=== PATIENT | female | born 1960 | race Caucasian/White ===

== ENCOUNTER 2019-11-08 14:12 | Inpatient (IN) | payer MEDICAID ==
[~2019-11-08] VITALS: Ht 165.1 cm; Wt 100.7 kg
[2019-11-08 14:24] VITALS: BP_SYST 107
--- NOTE | 2019-11-08 14:40 | NUR ---
Patient to ER bed 7 to gown for evaluation. Side rails up.
--- NOTE | 2019-11-08 14:45 | NUR ---
pt arrives from [facility] d/t low Hgb 6.5, reported by the HD center on 11/06. Pt is awake and non verbal. Pt is trch and vent dependent. G-tube is in place. Pt has HD acssess on the left chest. Pt has generalized edema and multiple wounds to BUE, BLE. charter representative placed. Will continue to monitor
--- NOTE | 2019-11-08 14:48 | NUR ---
EKG done and given to
--- NOTE | 2019-11-08 15:00 | NUR ---
urine sample collected via straight cath, sent to the lab
--- NOTE | 2019-11-08 15:20 | NUR ---
# 22 gauge angiocath placed to right chest. Use of asceptic technique. Opsite placed over site. Blood return noted. Blood for lab drawn from site. Flushed with 10 cc of normal saline. No evidence of infiltration noted. Patient tolerated well.
[2019-11-08 15:33] LABS: BILIRUBIN,URINE NEGATIVE (NEGATIVE); BLOOD, URINE 3+ (NEGATIVE); CLARITY/URINE TURBID (CLEAR); COLOR,URINE YELLOW (YELLOW); GLUCOSE,URINE NEGATIVE (NEGATIVE); KETONES,URINE NEGATIVE (NEGATIVE); LEUKOCYTE ESTERASE ,URINE 3+ (NEGATIVE); NITRITE, URINE NEGATIVE (NEGATIVE); PROTEIN URINE 3+ (NEGATIVE); UROBILINOGEN,URINE 0.2 (0.2-1.0)
--- NOTE | 2019-11-08 15:43 | NUR ---
pt getting a CXR at the bedside.
[2019-11-08 16:14] LABS: MEAN CORPUSCULAR HEMOGLOBIN 32 pg (27-31); MEAN CORPUSCULAR HGB CONC 32 % (32-36); MEAN CORPUSCULAR VOLUME 102 fL (79.0-98.0); PLATELET COUNT (AUTO) 112 K/uL (130-430); RED BLOOD CELL COUNT(AUTO) 2.02 MIL/uL (4.2-6.2); RED CELL DISTRIBUTION WIDTH 21.5 % (9.0-15.0); WHITE BLOOD COUNT (AUTO) 7.9 K/uL (4.8-10.8)
--- NOTE | 2019-11-08 16:15 | NUR ---
current vent settings are as follows: AC mode, TV o450, Peep 5, FiO2 35%
[2019-11-08 16:25] LABS: CALCIUM 10.1 mg/dL (8.4-11.0); CREATININE 3.65 mg/dL (0.55-1.30); POTASSIUM 3.5 mmol/L (3.5-5.1); PROTHROMBIN TIME 10.2 SECS (9.5-12.5)
[2019-11-08 16:34] LABS: HEMATOCRIT 20.6 % (36-48); HEMOGLOBIN 6.5 g/dL (12.0-16.0)
[2019-11-08 16:37] LABS: ALBUMIN 1.8 g/dL (3.4-4.8); FREE T4 (FREE THYROXINE) 0.8 ng/dl (0.8-1.5); TOTAL BILIRUBIN 0.3 mg/dL (0.0-1.0)
[2019-11-08] MEDS ORDERED: MIDO10TA GT (17:16)
[2019-11-08] MEDS ORDERED: ACET-2165 GT ×2 (17:16)
[2019-11-08] MEDS ORDERED: LANS30CA53 GT (17:16)
[2019-11-08] MEDS ORDERED: LOPE2CAP GT (17:16)
[2019-11-08] MEDS ORDERED: LEVE1000 GT (17:16)
[2019-11-08] MEDS ORDERED: LACO200T2 GT (17:16)
[2019-11-08] MEDS ORDERED: DEPAK250 GT (17:16)
[2019-11-08] MEDS ORDERED: CHLO1LIQ2 MC (17:16)
--- NOTE | 2019-11-08 17:27 | NUR ---
Medication reconciliation completed with information provided by pt's medical record. Any prior medication reconciliation on file was reviewed and corrected.
--- NOTE | 2019-11-08 17:27 | NUR ---
telephone consent for blood transfusion obtained from the pt's son, Josiah Christopher.
[2019-11-08] MEDS ORDERED: cefTRIAXone 1 GM IVPB PREMIX 50 ML IV ONE (17:30)
[2019-11-08] MEDS ORDERED: FUROSEMIDE 40 MG/4 ML VIAL IVP ONE (17:30)
[2019-11-08 17:45] LABS: BACTERIA,URINE MANY /HPF (None Seen); MUCUS,URINE None Seen /LPF (None Seen); WBC,URINE >100 /HPF (0-3)
[2019-11-08] MEDS ORDERED: PANTOPRAZOLE SODIUM 40 MG/VIAL (PROTONIX) IVP ONE (17:45)
--- NOTE | 2019-11-08 18:13 | NUR ---
MEDICATED THE PT W/ ROCEPHIN 1GM, LASIX 40MG, AND PROTONIX 80MG PER MD ORDER.
--- NOTE | 2019-11-08 18:14 | NUR ---
PT WILL BE ADMITTED UNDER THE CARE OF DR. RASCON. MRSA COLLECTED
--- NOTE | 2019-11-08 18:17 | NUR ---
Patient will be admitted to care of DR RASCON. Admitted to TELE unit. Will go to room 100-A. Belongings list completed. Complete and up to date summary report printed. SBAR report to be given at bedside with opportunity for questions.BEDSIDE RPEPORT TO BE GIVEN. IV IS ON THE RIGHT CHEST 22G, PATENT AND INFUSING WELL
[2019-11-08] MEDS ORDERED: PANTOPRAZOLE SODIUM 40 MG/VIAL (PROTONIX) ONE (18:20)
[2019-11-08 18:39] VITALS: BP_SYST 102
[2019-11-08 18:43] LABS: TOTAL IRON BIND. CAPACITY 158 ug/dL (250-450)
--- NOTE | 2019-11-08 18:53 | NUR ---
Received patient and report from ER nurse. Patient arrived on unit at tele status at 1839 via gurney with assistance from respiratory therapist. Patient awake. Transferred to bed, placed tele monitor on. 0/10 FLACC pain scale. Patient Trach to vent with AC 12, total volume 450, Fi02 40%, PEEP of 5. Vital signs collected, Blood pressure 102/45, 02 Sat 100, Respirations 20, Temp 97.4, Pulse 80. Call light with in reach.
[2019-11-08 19:00] VITALS: BP_SYST 93
[2019-11-08 19:09] LABS: BAND % (MANUAL) 12 % (0-6); LYMPHOCYTES % (MANUAL) 9 % (20-46)
--- NOTE | 2019-11-08 19:09 | NUR ---
Endorsed patient and gave report to oncoming shift nurse. Patient in no acute distress.
[2019-11-08 19:10] LABS: BASOPHILS % (MANUAL) 0 % (0-2); EOSINOPHILS % (MANUAL) 3 % (0-7); MONOCYTES % (MANUAL) 7 % (0-11)
--- NOTE | 2019-11-08 19:10 | NUR ---
OPENING NOTES Receive report from morning shift nurse. Patient AOX0. On mechanical ventilator, settings done by RT. No signs of respiratory distress and discomfort noted. Breathing even and unlabored. Bed locked and in lowest position. Assessment done per protocol. Safety precautions in place. Bed locked and in lowest position. Call light with in reach. Safety precautions in place. Will continue to monitor.
[2019-11-08] MEDS ORDERED: IPRATROPIUM BROM 0.5 MG/2.5 ML VIAL.NEB (ATROVENT) INH PRN (20:45)
[2019-11-08] MEDS ORDERED: ALBUTEROL SULFATE 0.083% 2.5 MG/3 ML VIAL.NEB INH PRN (20:45)
--- NOTE | 2019-11-08 21:15 | NUR ---
CONSULTATION PAGED/CALLED Reason for Consultation: VENT DEPENDENT Person Who was Notified: Consulting Physician: KEO Gwot Ia/Ilo Intelligence Support Specialty: Ordering Physician: TARAH
--- NOTE | 2019-11-08 21:17 | NUR ---
CONSULTATION PAGED/CALLED Reason for Consultation: HD Person Who was Notified: Consulting Physician: KATLIN RUTLEDGE PAPERHANGER PIPE Plant Health Manager Specialty: Ordering Physician: TARAH
[2019-11-08 21:19] VITALS: BP_SYST 102
[2019-11-08] MEDS ORDERED: DIPHENHYDRAMINE INJ 50 MG/ML VIAL IVP PRN (21:30)
[2019-11-08] MEDS ORDERED: ACETAMINOPHEN 650 MG/20.3 ML UDC GT PRN ×2 (21:30)
[2019-11-08] MEDS ORDERED: LOPERAMIDE HCL 2 MG/10 ML UDC GT SCH (21:30)
--- NOTE | 2019-11-08 23:44 | NUR ---
BLOOD TRANSFUSION Blood transfusion done at this time. Blood products verified by two RN. CLAIRE Bellamy and CLAIRE Floyd. No signs of respiratory distress and discomfort noted. Vital signs taken and recorded. Safety precautions in place. Will continue to monitor
[2019-11-08] MEDS: levETIRAcetam 500 MG TABLET GT SCH (23:49)
[2019-11-08] MEDS: MIDODRINE HCL 5 MG TABLET (PROAMATINE) GT SCH (23:49)
[2019-11-08] MEDS: LACOSAMIDE 100 MG TABLET GT SCH (23:49)
[2019-11-08] MEDS: VALPROIC ACID 250 MG CAPSULE (DEPAKENE) GT SCH (23:50)
[2019-11-09] VITALS: BP_SYST 98
--- NOTE | 2019-11-09 01:45 | NUR ---
BLOOD TRANSFUSION FINISHED Blood transfusion finished at this time. Patient tolerated blood transfusion well. No allergic reaction noted. No signs of respiratory distress and discomfort noted. Breathing even and unlabored. Safety precautions in place. Will continue to monitor patient
[2019-11-09] MEDS: IPRATROPIUM BROM 0.5 MG/2.5 ML VIAL.NEB (ATROVENT) INH SCH ×4 (01:54→19:25)
[2019-11-09] MEDS: ALBUTEROL SULFATE 0.083% 2.5 MG/3 ML VIAL.NEB INH SCH ×4 (01:55→19:25)
--- NOTE | 2019-11-09 02:04 | NUR ---
BLOOD TRANSFUSION 2nd unit PRBC Blood transfusion started at this time. Blood products verified by two RN. CLAIRE Smith and CLAIRE Floyd. No signs of respiratory distress and discomfort noted. Vital signs taken and recorded. Safety precautions in place. Will continue to monitor
--- NOTE | 2019-11-09 04:10 | NUR ---
2nd unit of PRBC BLOOD TRANSFUSION FINISHED Blood transfusion finished at this time. Patient tolerated blood transfusion well. Vital signs taken and recorded. No allergic reaction noted. No signs of respiratory distress and discomfort noted. Breathing even and unlabored. Safety precautions in place. Will continue to monitor patient
[2019-11-09] MEDS: MIDODRINE HCL 5 MG TABLET (PROAMATINE) GT SCH ×3 (06:46→22:10)
[2019-11-09] MEDS: VALPROIC ACID 250 MG CAPSULE (DEPAKENE) GT SCH ×3 (06:46→22:11)
--- NOTE | 2019-11-09 07:00 | NUR ---
CLOSING NOTES Patient awake. No signs of respiratory distress and discomfort noted. On mechanical ventilator, setting done by RT maintained. IV site, patency noted. G-tube, patency noted, no residual noted. Repositioned q2h. Bed locked and in lowest position. Seizure pads in place. Safety precautions in place. Call light within reach. All needs met throughout the shift. Will continue to monitor patient
[2019-11-09 07:45] LABS: BASOPHILS % (AUTO) 0.4 % (0.0-2.0); EOSINOPHILS # (AUTO) 0.3 K/uL (0.0-0.4); EOSINOPHILS % (AUTO) 2.5 % (0.0-4.0); HEMATOCRIT 26.3 % (36-48); HEMOGLOBIN 8.7 g/dL (12.0-16.0); LYMPHOCYTES # (AUTO) 0.9 K/uL (1.0-5.5); LYMPHOCYTES % (AUTO) 7.9 % (20.5-51.5); MEAN CORPUSCULAR HEMOGLOBIN 32 pg (27-31); MEAN CORPUSCULAR HGB CONC 33 % (32-36); MEAN CORPUSCULAR VOLUME 97 fL (79.0-98.0); MONOCYTES # (AUTO) 0.9 K/uL (0.0-1.0); MONOCYTES % (AUTO) 8.1 % (1.7-9.3); NEUTROPHILS # (AUTO) 8.8 K/uL (1.8-7.7); NEUTROPHILS % (AUTO) 81.1 % (40.0-70.0); PLATELET COUNT (AUTO) 114 K/uL (130-430); RED BLOOD CELL COUNT(AUTO) 2.72 MIL/uL (4.2-6.2); RED CELL DISTRIBUTION WIDTH 20.9 % (9.0-15.0); WHITE BLOOD COUNT (AUTO) 10.9 K/uL (4.8-10.8)
[2019-11-09 08:00] VITALS: BP_SYST 95
[2019-11-09 08:12] LABS: ALBUMIN 1.9 g/dL (3.4-4.8); CALCIUM 10.3 mg/dL (8.4-11.0); CREATININE 3.98 mg/dL (0.55-1.30); POTASSIUM 3.6 mmol/L (3.5-5.1); TOTAL BILIRUBIN 0.5 mg/dL (0.0-1.0)
[2019-11-09] MEDS: levETIRAcetam 500 MG TABLET GT SCH ×2 (10:07→22:10)
[2019-11-09] MEDS: LANSOPRAZOLE 30 MG CAPSULE.DR GT SCH (10:07)
[2019-11-09] MEDS: LACOSAMIDE 100 MG TABLET GT SCH ×2 (10:07→22:11)
--- NOTE | 2019-11-09 10:30 | NUR ---
rounds due meds given as ordered thorught the gt and tra well. resting comfortably.
--- NOTE | 2019-11-09 11:11 | NUR ---
CONSULTATION PAGED/CALLED Reason for Consultation: [] ANEMIA Person Who was Notified: [] RAGINI Consulting Physician: [] DR Padmini MALDONADO Band Saw Operator Cake Cutting Specialty: [] ONCO/RODNEY Ordering Physician: [] DR CHIVO KILGORE
[2019-11-09] MEDS ORDERED: LOPERAMIDE HCL 2 MG CAPSULE GT PRN (11:23)
[2019-11-09] MEDS ORDERED: ALBUMIN HUMAN 25% 200 ML IV ONE (11:30)
[2019-11-09] MEDS ORDERED: HEPARIN SODIUM,PORCINE 5000 UNITS/ML VIAL IVP ONE (12:00)
--- NOTE | 2019-11-09 12:00 | NUR ---
rounds dialysis in progress. no sob noted.
[2019-11-09 12:48] VITALS: BP_SYST 99
[2019-11-09 13:20] VITALS: BP_SYST 102
[2019-11-09] MEDS ORDERED: GENTAMICIN 100 mg/50 mL NS 50 ML IV ONE (16:00)
--- NOTE | 2019-11-09 16:00 | NUR ---
rounds perma cath site blue port was bleeding and marlow dialysis nurse was notified. dressing changed was done and will be observed for further bleeding.
[2019-11-09 16:39] VITALS: BP_SYST 94
[2019-11-09 16:52] LABS: RETICULOCYTE COUNT 1.1 % (0.5-1.5)
--- NOTE | 2019-11-09 17:00 | NUR ---
rounds perma cath blue port was clapmed with a white locked and bleeding stop. dressing was changed and no further bleeding noted. ele dialysis nurse came to see patient..
[2019-11-09 18:37] LABS: C-REACTIVE PROTEIN QUANT 13.7 mg/dL (0-0.5)
--- NOTE | 2019-11-09 19:00 | NUR ---
closing notes seen by dr encarnacion at bedside and with orders. resting comfortably at this time. bed to the lowest position and side rails up and locked. turned repositioned for comfort.
--- NOTE | 2019-11-09 19:10 | NUR ---
OPENING NOTES/ MD ROUNDS Patient AOX0, awake and cooperative. On mechanical ventilator, settings done by RT. No signs of respiratory distress and discomfort noted. Breathing even and unlabored. On G-Tube feeding, infusing well. IV site patency noted. Call light with in reach. Bed locked and in lowest position. Dr. Serrano on the bedside, gave new orders. Safety precautions in place. Bed locked and in lowest position. Call light with in reach. Safety precautions in place. Will continue to monitor.
[2019-11-09 20:18] VITALS: BP_SYST 116
[2019-11-09] MEDS: cefTRIAXone 1 GM in D5W 50 ML IV SCH (21:43)
--- NOTE | 2019-11-09 22:10 | NUR ---
MED PASS DUE MEDICATION GIVEN VIA G TUBE, 0 ML RESIDUAL IS NOTED. PATIENT TOLERATED WELL. NO SIGNS OF RESPIRATORY DISTRESS AND DISCOMFORT NOTED. BREATHING EVEN AND UNLABORED. SAFETY PRECAUTIONS IN PLACE. WILL CONTINUE TO MONITOR PATIENT.
[2019-11-09] MEDS: EPOETIN ALFA 10,000 UNITS/ML VIAL SUBCUT SCH (22:28)
--- NOTE | 2019-11-10 00:01 | NUR ---
RN ROUNDS Patient asleep at this time. no signs of respiratory distress and discomfort noted. breathing even and unlabored. on mechanical ventilator settings maintained. G-tube feeding infusing well. Safety precautions in place. Will continue to monitor.
[2019-11-10 00:54] VITALS: BP_SYST 100
[2019-11-10] MEDS: ALBUTEROL SULFATE 0.083% 2.5 MG/3 ML VIAL.NEB INH SCH ×4 (01:17→19:18)
[2019-11-10] MEDS: IPRATROPIUM BROM 0.5 MG/2.5 ML VIAL.NEB (ATROVENT) INH SCH ×4 (01:17→19:19)
--- NOTE | 2019-11-10 04:30 | NUR ---
RN ROUNDS Patient asleep at this time. No signs of respiratory distress and discomfort noted. breathing even and unlabored. On mechanical ventilator settings maintained. G-tube feeding infusing well. Safety precautions in place. Will continue to monitor.
[2019-11-10] MEDS: MIDODRINE HCL 5 MG TABLET (PROAMATINE) GT SCH ×3 (05:25→21:57)
[2019-11-10] MEDS: VALPROIC ACID 250 MG CAPSULE (DEPAKENE) GT SCH ×3 (05:25→21:35)
--- NOTE | 2019-11-10 06:57 | NUR ---
Nutrition Update Channing Scale 11 noted. Pt admitted for Anemia Diet: Nepro at 30ml/hr, FWF 50ml/hr via GT BMI: 36.3 kg/m2 RD to follow per nutrition care standards.
--- NOTE | 2019-11-10 07:00 | NUR ---
CLOSING NOTES Patient awake. No signs of respiratory distress and discomfort noted. On mechanical ventilator, setting done by RT maintained. IV site, patency noted. G-tube, patency noted, no residual noted. Repositioned q2h. Bed locked and in lowest position. Seizure pads in place. Safety precautions in place. Call light within reach. All needs met throughout the shift. Endorse to CLAIRE Lopez for continuity of care.
--- NOTE | 2019-11-10 07:30 | NUR ---
Am rounds: Received report from night nurse Mariel.Patient opens eyes,non verbal.On trach vent,fio2=35%,good saturation. Tube feeds on going.Padded side rails on,for seizure precaution. Right big toe with dressing on and left foot dressing,clean and dry. Bed locked at lowest position. No acute distress.
[2019-11-10 08:10] LABS: BASOPHILS % (AUTO) 0.6 % (0.0-2.0); EOSINOPHILS # (AUTO) 0.2 K/uL (0.0-0.4); EOSINOPHILS % (AUTO) 2.4 % (0.0-4.0); HEMOGLOBIN 8.6 g/dL (12.0-16.0); LYMPHOCYTES % (AUTO) 12.5 % (20.5-51.5); MEAN CORPUSCULAR HEMOGLOBIN 32 pg (27-31); MEAN CORPUSCULAR HGB CONC 33 % (32-36); MEAN CORPUSCULAR VOLUME 97 fL (79.0-98.0); MONOCYTES # (AUTO) 0.8 K/uL (0.0-1.0); NEUTROPHILS # (AUTO) 5.8 K/uL (1.8-7.7); NEUTROPHILS % (AUTO) 74.5 % (40.0-70.0); PLATELET COUNT (AUTO) 116 K/uL (130-430); RED BLOOD CELL COUNT(AUTO) 2.69 MIL/uL (4.2-6.2); WHITE BLOOD COUNT (AUTO) 7.8 K/uL (4.8-10.8)
[2019-11-10 08:30] LABS: CALCIUM 9.9 mg/dL (8.4-11.0); CREATININE 3.01 mg/dL (0.55-1.30); POTASSIUM 3.3 mmol/L (3.5-5.1)
[2019-11-10] MEDS: LANSOPRAZOLE 30 MG CAPSULE.DR GT SCH (10:00)
[2019-11-10] MEDS: levETIRAcetam 500 MG TABLET GT SCH ×2 (10:00→21:35)
[2019-11-10] MEDS: LACOSAMIDE 100 MG TABLET GT SCH ×2 (10:01→21:35)
--- NOTE | 2019-11-10 10:30 | NUR ---
Rn Rounds: No acute distress. With same vent setting on,tolerated well. Good saturation.Tube feeds running well.
--- NOTE | 2019-11-10 12:01 | NUR ---
Dietitian Recommendations *Recommend: Nepro at 40ml/hr, Giovanni BID via GT Provides: 1888 kcal, 83 gm protein and 698ml free water daily. Meets: 94% of upper end of estimated calorie needs and 95% of upper end of estimated protein needs. *Free Water flush per MD. Please see Nutritional Assessment for details. CARLOS, RD
[2019-11-10 12:27] VITALS: BP_SYST 127
[2019-11-10] MEDS ORDERED: FLU VACC QS2019-20 36MOS UP/PF 60 MCG/0.5 ML SYRINGE I.M. PRN (13:15)
--- NOTE | 2019-11-10 14:00 | NUR ---
Rn rounds: Resting. With same vent settings,good saturation. Condition guarded.
[2019-11-10] MEDS: cefTRIAXone 1 GM in D5W 50 ML IV SCH (15:44)
--- NOTE | 2019-11-10 16:30 | NUR ---
Rn rounds: Patient resting. With same vent setting. Tolerated well. Tube feeds on going. Stable.
[2019-11-10 16:51] VITALS: BP_SYST 143
--- NOTE | 2019-11-10 18:30 | NUR ---
End of Shift: Patient maintained on same vent settings,o2 sat=98-100%. No acute distress. Bed locked at lowest position. Bed alarm on.Tube feedings running well. No residuals prior to giving meds. Safety measures rendered.For Hd in am,together for 1 unit prbc transfusion as ordered.Continue to monitor.
--- NOTE | 2019-11-10 19:10 | NUR ---
OPENING NOTES Patient AOX0, awake and cooperative. On mechanical ventilator, settings done by RT. No signs of respiratory distress and discomfort noted. Breathing even and unlabored. On G-Tube feeding, infusing well. IV site patency noted. Call light with in reach. Bed locked and in lowest position. Safety precautions in place. Bed locked and in lowest position. On seizure pads in place. Safety precautions in place. Will continue to monitor.
[2019-11-10 20:00] VITALS: BP_SYST 142
--- NOTE | 2019-11-10 21:40 | NUR ---
PAGED PAGED JENNIFER DAVILA AT [phone] SPOKE WITH LACY.
--- NOTE | 2019-11-10 21:54 | NUR ---
SPOKE WITH DR. TARAH WU MADE AWARE OF PATIENTS VITAL SIGNS; BLOOD PRESSURE OF 142/52 HR 74. VERBALIZED TO HOLD DUE MEDICATION MIDODRINE AT THIS TIME. SAFETY PRECAUTIONS IN PLACE. WILL CONTINUE TO MONITOR PATIENT.
--- NOTE | 2019-11-10 23:40 | NUR ---
RN ROUNDS Patient awake and watching TV at this time. No signs of respiratory distress and discomfort noted. Breathing even and unlabored. On mechanical ventilator settings maintained. G-tube feeding infusing well. Safety precautions in place. Will continue to monitor.
[2019-11-11] VITALS (7 sets, daily range): BP systolic 103–139
[2019-11-11] MEDS: IPRATROPIUM BROM 0.5 MG/2.5 ML VIAL.NEB (ATROVENT) INH SCH ×4 (01:49→19:16)
[2019-11-11] MEDS: ALBUTEROL SULFATE 0.083% 2.5 MG/3 ML VIAL.NEB INH SCH ×4 (01:49→19:15)
--- NOTE | 2019-11-11 02:38 | NUR ---
RN ROUNDS Patient asleep at this time. No signs of respiratory distress and discomfort noted. Breathing even and unlabored. On mechanical ventilator settings maintained. G-tube feeding infusing well. Safety precautions in place. Will continue to monitor.
[2019-11-11] MEDS: MIDODRINE HCL 5 MG TABLET (PROAMATINE) GT SCH ×3 (05:57→21:29)
[2019-11-11] MEDS: VALPROIC ACID 250 MG CAPSULE (DEPAKENE) GT SCH ×3 (05:57→21:29)
--- NOTE | 2019-11-11 06:56 | NUR ---
CLOSING NOTES Patient awake. No signs of respiratory distress and discomfort noted. On mechanical ventilator, setting done by RT maintained. IV site, patency noted. G-tube, patency noted, no residual noted. Repositioned q2h. Suctioned done as necessary. Bed locked and in lowest position. Seizure pads in place. Dialysis ordered today. Safety precautions in place. Call light within reach. All needs met throughout the shift. Will continuity to monitor until endorse to oncoming shift nurse for continuity of care.
--- NOTE | 2019-11-11 07:30 | NUR ---
OPENING NOTE Patient resting in bed. trach Mechanical ventilation is on with FIO2: 35% and O2 sat: 100%. tolerate well. patient both eyes are open. contract her both upper and lower extremities. Tube feeding is running with 35cc/hour. I.V saline lock on right fore arm and on left chest subclavian perma catheter, dressing clean and dry. Put bed alarm on, placed call light within reach and bed in the lowest position.
[2019-11-11 07:31] LABS: BASOPHILS % (AUTO) 0.3 % (0.0-2.0); EOSINOPHILS # (AUTO) 0.2 K/uL (0.0-0.4); EOSINOPHILS % (AUTO) 2.1 % (0.0-4.0); HEMATOCRIT 24.6 % (36-48); HEMOGLOBIN 8.1 g/dL (12.0-16.0); LYMPHOCYTES # (AUTO) 0.7 K/uL (1.0-5.5); LYMPHOCYTES % (AUTO) 8.8 % (20.5-51.5); MEAN CORPUSCULAR HEMOGLOBIN 32 pg (27-31); MEAN CORPUSCULAR HGB CONC 33 % (32-36); MEAN CORPUSCULAR VOLUME 97 fL (79.0-98.0); MONOCYTES # (AUTO) 0.8 K/uL (0.0-1.0); NEUTROPHILS # (AUTO) 6.4 K/uL (1.8-7.7); NEUTROPHILS % (AUTO) 78.8 % (40.0-70.0); PLATELET COUNT (AUTO) 111 K/uL (130-430); RED BLOOD CELL COUNT(AUTO) 2.53 MIL/uL (4.2-6.2); RED CELL DISTRIBUTION WIDTH 20.5 % (9.0-15.0); WHITE BLOOD COUNT (AUTO) 8.1 K/uL (4.8-10.8)
[2019-11-11 07:34] LABS: ALBUMIN 1.9 g/dL (3.4-4.8); CREATININE 3.55 mg/dL (0.55-1.30); PHOSPHORUS 3.9 mg/dL (2.7-4.5); POTASSIUM 3.5 mmol/L (3.5-5.1); TOTAL BILIRUBIN 0.3 mg/dL (0.0-1.0)
[2019-11-11] MEDS: levETIRAcetam 500 MG TABLET GT SCH ×2 (09:50→21:29)
[2019-11-11] MEDS: LACOSAMIDE 100 MG TABLET GT SCH ×2 (09:50→21:29)
[2019-11-11] MEDS: LANSOPRAZOLE 30 MG CAPSULE.DR GT SCH (09:51)
--- NOTE | 2019-11-11 10:00 | NUR ---
HD HD started by Daryn and patient was stable.
--- NOTE | 2019-11-11 10:27 | NUR ---
BT INITIATION: Consent signed per family agreeing to administration of blood. Blood has been type and crossmatched. Blood sent from blood bank. Information on unit of blood checked against patient wristband at bedside by two nurses. All information matches. Patient or responsible libertarian informed of potential complications associated with blood transfusion. Informed of possible transfusion reaction symptoms. patient not aware of need to notify nurse at once of itching, shortness of breath, flushing, feeling of impending doom, or other symptoms not previously present due to cognitive impairment. Vital signs taken within 5 minutes prior to initiation of transfusion. RN will remain with patient for first 15 minutes of transfusion at which time vital signs will be re-assessed. Blood transfusion was done by dialysis nurse.
[2019-11-11] MEDS ORDERED: HEPARIN SODIUM,PORCINE 5000 UNITS/ML VIAL MC ONE ×2 (11:22→11:30)
--- NOTE | 2019-11-11 13:00 | NUR ---
HD finish HD out 2.3L.
[2019-11-11 13:07] LABS: FOLATE (FOLIC ACID) 6.1 ng/mL (>3.0)
--- NOTE | 2019-11-11 14:38 | NUR ---
WOUND EVALUATION: Wound Consult received from Dr. Serrano. Thank you Dr. Serrano for the consult. Patient received in a Martínez Bed with an IsoFlex ANNEMARIE mattress with low air-loss therapy, awake, non-verbal, but mouths words. Patient is unable to turn in bed independently. Channing Score is an 11. Past Medical History: Chronic respiratory failure, ventilator dependent, end-stage renal disease on hemodialysis, anemia of chronic illness, peripheral arterial disease with gangrene of multiple toes. Recent Labs: WBC 7.4, RBC 3.21, hemoglobin 10.1, hematocrit 30.9, ESR 73, sodium 131, chloride 94, BUN 44, creatinine 3.55, GFR 14, serum total protein 5.7, albumin 1.9. Microbiology: MRSA screen results negative. Blood culture results x2 in progress. Urine culture results positive for Proteus Penneri (MDRO). 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 Extrinsic factors that delay wound healing: Immobility. Wound Assessment: 1. Left Sacral/Buttock area: Unstageable pressure ulcer, present on admission. Wound bed has 90% yellow tissue, 10% pink tissue. No odor, no drainage. Coby-wound macerated. Wound measures 6.7 cm x 5.6 cm. 2. Right Sacral/Buttock area: Unstageable pressure ulcer, present on admission. Wound bed has 15% black tissue, 15% pink tissue, 70% yellow tissue. No odor, no drainage. Coby-wound macerated. Wound measures 9.5 cm x 4.0 cm. Recommend: Cleanse wounds with normal saline. Apply Calmoseptine cream to coby-wounds. Apply Venelex ointment to wound beds. Cover with non-adhesive foam dressings, then transparent dressings. Perform wound care daily, and as needed for dressing soiling or dislodgement. 3. Coby-Anal area: IAD with MASD, present on admission. Site has 100% red tissue. No odor, no drainage. Recommend: Cleanse area with normal saline. Apply Calmoseptine cream to involved areas. Perform site care qid, and as needed for soiling. 4. Right Great Toe, Plantar Aspect: Ischemic wound with dry gangrene, present on admission. Site has 90% dull pink tissue, 10% yellow eschar. No odor, no drainage. Measures 2.0 cm x 1.6 cm. 5. Left Great Toe, Distal Aspect: Ischemic wound with dry gangrene, present on admission. Site has 90% black eschar, 10% yellow eschar. No odor, no drainage. Measures 6.5 cm x 6.7 cm. 6. Left Second Toe: Ischemic wound with dry gangrene, present on admission. Site has 60% yellow eschar, 40% black eschar. No odor, no drainage. Dry, stable. Measures 1.4 cm x 1.0 cm. Recommend: [place] ischemic portions of toes with Betadine daily. No dressings needed. Continue to monitor sites qshift. Also recommend: Reposition patient side to side every 2 hours with one pillow underneath trunk and one pillow underneath pelvis (hand should be able to slide freely underneath buttock). Off-load pressure areas with pillows for pressure re-distribution. Offload, elevate and float bilateral heels with one pillow lengthwise under each extremity at all times. Perform skin care and monitor skin integrity Q shift. Use moisture barrier cream on buttocks and other moisture susceptible areas QID and as needed for soiling. Maintain patient on a low air-loss mattress.
[2019-11-11 15:51] LABS: FERRITIN 2455 ng/mL (15-150)
[2019-11-11 16:03] LABS: BASOPHILS % (AUTO) 0.3 % (0.0-2.0); EOSINOPHILS # (AUTO) 0.2 K/uL (0.0-0.4); EOSINOPHILS % (AUTO) 2.1 % (0.0-4.0); HEMATOCRIT 30.9 % (36-48); HEMOGLOBIN 10.1 g/dL (12.0-16.0); LYMPHOCYTES # (AUTO) 0.9 K/uL (1.0-5.5); LYMPHOCYTES % (AUTO) 11.5 % (20.5-51.5); MEAN CORPUSCULAR HEMOGLOBIN 31 pg (27-31); MEAN CORPUSCULAR HGB CONC 33 % (32-36); MEAN CORPUSCULAR VOLUME 96 fL (79.0-98.0); MONOCYTES # (AUTO) 0.7 K/uL (0.0-1.0); MONOCYTES % (AUTO) 9.9 % (1.7-9.3); NEUTROPHILS # (AUTO) 5.7 K/uL (1.8-7.7); NEUTROPHILS % (AUTO) 76.2 % (40.0-70.0); PLATELET COUNT (AUTO) 118 K/uL (130-430); RED BLOOD CELL COUNT(AUTO) 3.21 MIL/uL (4.2-6.2); RED CELL DISTRIBUTION WIDTH 19.4 % (9.0-15.0); WHITE BLOOD COUNT (AUTO) 7.4 K/uL (4.8-10.8)
[2019-11-11] MEDS: EPOETIN ALFA 10,000 UNITS/ML VIAL SUBCUT SCH (16:29)
[2019-11-11] MEDS ORDERED: MIDO5TAB GT (16:29)
[2019-11-11] MEDS: cefTRIAXone 1 GM in D5W 50 ML IV SCH (16:29)
--- NOTE | 2019-11-11 17:36 | NUR ---
PAGED: CALLED DR RASCON'S EXCHANGE AND SPOKE WITH LACY REGARDING CRITICAL MICRO.
--- NOTE | 2019-11-11 17:36 | NUR ---
ID consult Spoke with Dr. Serrano with ID consult for MDRO in urine. Dr. Chiu was aware of the consult.
--- NOTE | 2019-11-11 18:45 | NUR ---
CLOSING NOTE Patient resting in bed. with same vent setting , well tolerated with good oxygen saturation. Tube feeding on going. place call light within reach and bed in the lowest position. Put bed alarm on. place patient on contact isolation for MDRO in urine. no acute respiratory distress noted at this time.
--- NOTE | 2019-11-11 20:00 | NUR ---
ASSUMED CARE. RECEIVED ALERT,OPENS EYES SPONTANEOUSLY, NON-VERBAL. AFEBRILE, NOT IN ACUTE DISTRESS. NO PAIN OR DISCOMFORT NOTED. WITH SALINE LOCK TO THE RIGHT AC #22 INTACT. G-TUBE FEEDING NEPRO RUNNING AT 35 ML/HR. HEAD OF BED ELEVATED AT LEAST 30 DEGRES AT ALL TIMES. PBW0=929% ON MECHANICAL VENTILATOR WITH THE FOLLOWING SETTINGS: HG=137 FIO2=35% AC=12 PEEP=5. SINUS RHYTHM/DARIUS AT 50-60'S/MINUTE ON THE MONITOR. PERMA-CATH TO THE LEFT SUBCLAVIAN INTACT. CONTACT ISOLATION FOR MDRO URINE BEING OBSERVED. VS ARE OTHERWISE STABLE, WILL CONTINUE TO MONITOR. NEEDS ATTENDED.
--- NOTE | 2019-11-11 21:29 | NUR ---
GASTRIC RESIDUAL=0. DUE MEDICATIONS GIVEN VIA G-TUBE.
--- NOTE | 2019-11-12 | NUR ---
AWAKE, NOT IN ANY KIND OF DISTRESS. NO PAIN OR DISCOMFORT NOTED. SIDE RAILS UP, CALL LIGHT WITHIN REACH. KEPT WARM AND COMFORTABLE. VS REMAIN STABLE. WILL CONTINUE TO MONITOR.
[2019-11-12 00:24] VITALS: BP_SYST 148
[2019-11-12] MEDS: ALBUTEROL SULFATE 0.083% 2.5 MG/3 ML VIAL.NEB INH SCH ×4 (02:23→19:00)
[2019-11-12] MEDS: IPRATROPIUM BROM 0.5 MG/2.5 ML VIAL.NEB (ATROVENT) INH SCH ×4 (02:23→19:00)
--- NOTE | 2019-11-12 02:40 | NUR ---
AWAKE, NO PAIN OR DISCOMFORT NOTED. WILL CONTINUE TO MONITOR.
--- NOTE | 2019-11-12 04:00 | NUR ---
ASLEEP, NO SIGNIFICANT CHANGE IN CONDITION. PT. REMAINS STABLE AND PAIN FREE.
[2019-11-12 05:12] LABS: A/G RATIO 0.8 (0.7-1.7); ALBUMIN 2.4 g/dL (2.9-4.4); ALPHA-1-GLOBULIN 0.4 g/dL (0.0-0.4); ALPHA-2-GLOBULIN 0.9 g/dL (0.4-1.0); BETA GLOBULIN 0.7 g/dL (0.7-1.3); GLOBULIN, TOTAL 3.1 g/dL (2.2-3.9); M-SPIKE Not Observed g/dL (Not Observed)
[2019-11-12] MEDS: VALPROIC ACID 250 MG CAPSULE (DEPAKENE) GT SCH ×3 (05:55→22:24)
[2019-11-12] MEDS: MIDODRINE HCL 5 MG TABLET (PROAMATINE) GT SCH ×3 (05:55→22:23)
--- NOTE | 2019-11-12 05:55 | NUR ---
AWAKE, NOT IN ACUTE DISTRESS. NO PAIN OR DISCOMFORT NOTED. DUE MEDICATIONS GIVEN.
--- NOTE | 2019-11-12 07:05 | NUR ---
ENDORSED CARE TO JEANNE RN STABLE.
--- NOTE | 2019-11-12 07:24 | NUR ---
OPENING NOTE Patient resting in the bed. No acute distress. Trach intact to vent. HOB elevated. GT intact, on Nepro at 40ml/hr. Skin warm and dry to touch, generalized edema noted. Perma cath intact to left subclavian, covered with clean and dry dressing. SL intact to RAC, no redness, no swelling. On contact isolation. Safety measure maintained. Call light within reached. Bed locked in low position, padded side rails up, bed alarm on. Will continue to monitor.
[2019-11-12 08:00] VITALS: BP_SYST 118
[2019-11-12] MEDS: LANSOPRAZOLE 30 MG CAPSULE.DR GT SCH (08:47)
[2019-11-12] MEDS: LACOSAMIDE 100 MG TABLET GT SCH ×2 (08:47→22:24)
[2019-11-12] MEDS: levETIRAcetam 500 MG TABLET GT SCH ×2 (08:47→22:23)
--- NOTE | 2019-11-12 08:50 | NUR ---
AM SCHEDULE MED GIVEN Patient resting in the bed. Trach intact to celeste. GT intact, patent, no residual.GT feeding tolerated well. HOB elevated. AM schedule med given as ordered. Continue on contact isolation. Safety measure maintained. Call light within reached. Bed locked in low position, padded side rails up, bed alarm on. Continue to monitor.
--- NOTE | 2019-11-12 10:50 | NUR ---
SEEN AND EXAMINED BY STEPHANIE ROBLES.
--- NOTE | 2019-11-12 11:04 | NUR ---
SEEN AND EXAMINED BY ROSETTA MATTA.
[2019-11-12 11:14] VITALS: BP_SYST 119
--- NOTE | 2019-11-12 12:17 | NUR ---
Discharge Planning: DCP faxed pt referral to [facility] (f [phone] p [phone]) DCP to follow up. Addendum: 11/12/19 at 1505 by Cecy Rios DP DCP followed up with Narcisa at [facility] (f [phone] p [phone]) she will contact [facility] for NANCY arauz.
[2019-11-12] MEDS: BALSAM PERU/CASTOR OIL 60 GM OINT...G. TP SCH (12:39)
[2019-11-12] MEDS: MENTHOL/ZINC OXIDE 113 GM OINT. TP PRN (12:39)
--- NOTE | 2019-11-12 14:00 | NUR ---
TURNED AND REPOSITIONED Patient resting in the bed. Trach intact to vent. Continue on GT feeding, tolerated well. HOB elevated. Turned and repositioned with TUGBOAT ENGINEER. Continue on contact isolation. Safety measure maintained. Call light within reached. Bed locked in low position, padded side rails up, bed alarm on. Continue to monitor.
[2019-11-12 15:00] VITALS: BP_SYST 118
--- NOTE | 2019-11-12 16:20 | NUR ---
ROUND Patient resting in the bed. No acute distress. HOB elevated. Trach intact to vent. Continue on GT feeding, tolerated well. Contact isolation maintained. Safety measure maintained. Bed locked in low position, padded side rails up, bed alarm on. Call light within reached. Continue to monitor.
--- NOTE | 2019-11-12 16:30 | NUR ---
TALKED TO TRAVEL PT REGARDING THE DISCHARGE, PER REMI STILL WORKING ON IT.
[2019-11-12] MEDS: cefTRIAXone 1 GM in D5W 50 ML IV SCH (16:45)
--- NOTE | 2019-11-12 17:21 | NUR ---
JENNIFER WELCH Dr. in the unit make awake no bed available at this time. group exercise manager still working on it.
--- NOTE | 2019-11-12 18:11 | NUR ---
ROUND Patient resting in the bed. Trach intact to vent. Continue on GT feeding, tolerated well. HOB elevated. Continue on contact isolation. Safety measure maintained. Bed locked in low position, padded side rails up, bed alarm on. Call light within reached. Continue to monitor.
--- NOTE | 2019-11-12 18:50 | NUR ---
CLOSING NOTE Patient resting in the bed. No acute distress. Trach intact to vent. HOB elevated. GT intact, on Nepro at 40ml/hr. Skin warm and dry to touch, generalized edema noted. Perma cath intact to left subclavian, covered with clean and dry dressing. SL intact to RAC, no redness, no swelling. On contact isolation. All needs met. No seizure activity noted during shift. Contact isolation maintained. Safety measure maintained. Call light within reached. Bed locked in low position, padded side rails up, bed alarm on. Will endorse to night nurse.
[2019-11-12 20:00] VITALS: BP_SYST 112
--- NOTE | 2019-11-12 20:00 | NUR ---
received report @ start of shift, non-verbal, , vent settings as follows AC =12,, TV= 450, FIO2 = 35%, peep= 5, suctioned as needed by resp. therapist, turned and repositioned q 2 hrs, permacath in left chest wall , big toe on left foot grangrene, right big toe with wound , sacral wound dressing changed, f/c draining yellow urine, gt infusing nepro @ 40 ml/hr/, sr's up x's 3, call light within reach, bed in low position, will continue to monitor.
--- NOTE | 2019-11-13 | NUR ---
continues to rest quietly in bed , vent alarms ring out often,resp. therapist @ bs constantly,m states she does a lot of coughing which causes alarms to go off, suctioned for excessive secretions as needed,turned and repositioned q2 hrs.will continue to monitor.
[2019-11-13 01:19] VITALS: BP_SYST 104
[2019-11-13] MEDS: ALBUTEROL SULFATE 0.083% 2.5 MG/3 ML VIAL.NEB INH SCH ×4 (01:58→19:39)
[2019-11-13] MEDS: IPRATROPIUM BROM 0.5 MG/2.5 ML VIAL.NEB (ATROVENT) INH SCH ×4 (01:58→19:39)
[2019-11-13 04:00] VITALS: BP_SYST 135
--- NOTE | 2019-11-13 04:00 | NUR ---
turned and repositioned, no new changes noted in patient's present condition, kept clean and dry, soft brown stool x's one, will continue to monitor.
[2019-11-13] MEDS: MIDODRINE HCL 5 MG TABLET (PROAMATINE) GT SCH ×3 (06:44→21:50)
[2019-11-13] MEDS: VALPROIC ACID 250 MG CAPSULE (DEPAKENE) GT SCH ×3 (06:44→21:50)
[2019-11-13 07:22] LABS: CALCIUM 10.2 mg/dL (8.4-11.0); CREATININE 3.38 mg/dL (0.55-1.30)
[2019-11-13 07:24] LABS: BASOPHILS % (AUTO) 0.5 % (0.0-2.0); EOSINOPHILS # (AUTO) 0.2 K/uL (0.0-0.4); EOSINOPHILS % (AUTO) 2.3 % (0.0-4.0); HEMATOCRIT 29.3 % (36-48); HEMOGLOBIN 9.7 g/dL (12.0-16.0); LYMPHOCYTES # (AUTO) 0.9 K/uL (1.0-5.5); LYMPHOCYTES % (AUTO) 11.8 % (20.5-51.5); MEAN CORPUSCULAR HEMOGLOBIN 32 pg (27-31); MEAN CORPUSCULAR HGB CONC 33 % (32-36); MEAN CORPUSCULAR VOLUME 97 fL (79.0-98.0); MONOCYTES # (AUTO) 0.7 K/uL (0.0-1.0); MONOCYTES % (AUTO) 8.6 % (1.7-9.3); NEUTROPHILS % (AUTO) 76.8 % (40.0-70.0); PLATELET COUNT (AUTO) 119 K/uL (130-430); RED BLOOD CELL COUNT(AUTO) 3.02 MIL/uL (4.2-6.2); RED CELL DISTRIBUTION WIDTH 19.8 % (9.0-15.0); WHITE BLOOD COUNT (AUTO) 7.8 K/uL (4.8-10.8)
--- NOTE | 2019-11-13 07:30 | NUR ---
OPENING NOTE Patient resting in the bed. No acute distress. Trach intact to vent. HOB elevated. GT intact, on Nepro at 40ml/hr. Skin warm and dry to touch, generalized edema noted. Perma cath intact to left subclavian, covered with clean and dry dressing. SL intact to RAC, no redness, no swelling. On contact isolation. Safety measure maintained. Bed locked in low position, padded side rails up, bed alarm on. Call light within reached. Will continue to monitor.
[2019-11-13 07:34] LABS: POTASSIUM 2.9 mmol/L (3.5-5.1)
--- NOTE | 2019-11-13 07:48 | NUR ---
PAGED PAGED JENNIFER DAVILA AT [phone] SPOKE WITH ASHLEY.
[2019-11-13 08:00] VITALS: BP_SYST 144
--- NOTE | 2019-11-13 09:39 | NUR ---
PAGED PAGED JENNIFER DAVILA AT [phone] SPOKE WITH CHILANGO.
[2019-11-13] MEDS: BALSAM PERU/CASTOR OIL 60 GM OINT...G. TP SCH (09:43)
[2019-11-13] MEDS: LACOSAMIDE 100 MG TABLET GT SCH ×2 (09:43→21:50)
[2019-11-13] MEDS: LANSOPRAZOLE 30 MG CAPSULE.DR GT SCH (09:43)
[2019-11-13] MEDS: levETIRAcetam 500 MG TABLET GT SCH ×2 (09:43→21:49)
[2019-11-13] MEDS: MENTHOL/ZINC OXIDE 113 GM OINT. TP PRN ×2 (09:44→16:49)
--- NOTE | 2019-11-13 09:44 | NUR ---
AM SCHEDULE MED GIVE Patient resting in the bed. No acute distress. Trach intact to vent. HOB elevate. GT intact, patent, no residual. AM schedule med via GT, tolerated well. Continue on contact isolation. Safety measure maintained. Bed locked in low position, padded side rails up, bed alarm on. Call light within reached. Continue to monitor.
--- NOTE | 2019-11-13 10:00 | NUR ---
HEMODIALYSIS STARTED Patient resting in the bed. No acute distress. Dialysis arrived and hemodialysis started. Safety measure maintained. Call light within reached. Bed locked in low position, padded side rails up, bed alarm on. Continue to monitor.
--- NOTE | 2019-11-13 10:57 | NUR ---
K=2.9 Called to Sheron Ventura x 2 regarding K=2.9. Dr. Serrano arrived in the unit and ordered KCl 40mEQ packet via GT x 1.
[2019-11-13] MEDS ORDERED: POTASSIUM CHLORIDE 20 MEQ/PKT PACKET GT ONE (11:00)
--- NOTE | 2019-11-13 11:31 | NUR ---
Discharge Planning: JESUS received message from Narcisa at [facility] (f [phone] p [phone]) [facility] Medical needs information for NANCY, JESUS faxed to Jermaine at [facility] (f [phone] p [phone]). JESUS also left message for Narcisa asking what information she need JESUS to fax her for NANCY. DCP will follow up. Addendum: 11/14/19 at 1647 by Cecy Rios DP DCP arrange transportation with Radha ([phone]) 8:30pm Auth#[id number] to [place] (f [phone] p [phone]) Rm 207A. Patient packet taken to nurse station.
[2019-11-13 12:09] LABS: HAPTOGLOBIN 299 mg/dL (33-346)
[2019-11-13 12:10] VITALS: BP_SYST 141
--- NOTE | 2019-11-13 12:10 | NUR ---
SEEN AND EXAMINED BY ROSETTA MATTA.
--- NOTE | 2019-11-13 12:50 | NUR ---
HEMODIALYSIS COMPLETED Patient resting in the bed. No acute distress. VS stable. Trach intact to vent. HOB elevated. Hemodialysis completed with 2500ml out. Perma cath intact to left subclavian, no bleeding, dressing intact. Safety measure maintained. Call light within reached. Bed locked in low position, padded side rails up, bed alarm on. Continue to monitor.
[2019-11-13 13:52] VITALS: BP_SYST 117
[2019-11-13 16:05] VITALS: BP_SYST 121
--- NOTE | 2019-11-13 16:14 | NUR ---
SEEN AND EXAMINED BY STEPHANIE ROBLES.
--- NOTE | 2019-11-13 16:30 | NUR ---
Nutrition F/U RD reviewed pt's current EMR record including diet Hx, physician notes, nursing notes, pertinent labs/meds/procedures, care trends, and care activity. Admission Dx: Anemia PMH: SEVERE ANEMIA OF CHRONIC ILLNESS, ESRD ON HD, CHRONIC RESP FAILURE, PAD W / MULTIPLE GANGRENOUS TOES, SEIZURE DISORDER, SEVERE PROTEIN MALNUTRITION per MD notes. Current Diet Order/Nutrition Support: Nepro at 40 ml/hr, Giovanni BID, Free Water Flush: 50 ML q 6 hours via GT x3 days Subjective Info: Pt was receiving dialysis at time of RD visit w/ TF infusing as per physician order. RN reported that pt has been tolerating TF well, and is receiving potassium repletion therapy. Pending possible D/C per case management notes. Skin Integrity Comment: Channing scale: 12; reviewed Boilermaking Supervisor note 11/11/19 -- pt has multiple wounds NEW Estimated Energy Expenditure (kcals/day) 0478-1693 kcal/day (30-35 kcal/kg ABW for wound healing) Estimated Protein Required (g/day) 80-87 gm/day (1.2-1.3 gm/kg ABW for Renal Dz on HD, wound healing) Estimated Fluid Required (l/day) per MD (Renal Dz) Problem/Etiology/Signs/Symptoms Increased nutrient needs r/t skin integrity AEB presence of wound and skin issues. *ongoing Expected Outcomes/Goals Monitor EN tolerance and intake w/ goal of pt meeting at least 75% of estimated nutritional needs, labs trending WNL, normal GI function, skin integrity/wt maintenance. Dietitian Recommendations * Recommend continuing Nepro at 40 ml/hr, Gioavnni BID via GT Provides: 1888 kcal, 83 gm protein and 698ml free water daily Meets: 94% of upper end of estimated caloric needs and 95% of upper end of estimated protein needs * Free Water flush per physician Follow Up High Risk: F/U in 2-3 days Addendum: 11/13/19 at [address] Nutrition Consult received for multiple wounds 11/12/19 [id number]
--- NOTE | 2019-11-13 16:34 | NUR ---
Dietitian Recommendations * Recommend continuing Nepro at 40 ml/hr, Giovanni BID via GT Provides: 1888 kcal, 83 gm protein and 698ml free water daily Meets: 94% of upper end of estimated caloric needs and 95% of upper end of estimated protein needs * Free Water flush per physician LP, RD Please refer to Nutrition F/U for details.
[2019-11-13] MEDS: cefTRIAXone 1 GM in D5W 50 ML IV SCH (16:48)
[2019-11-13] MEDS: EPOETIN ALFA 10,000 UNITS/ML VIAL SUBCUT SCH (16:49)
--- NOTE | 2019-11-13 17:12 | NUR ---
SEEN AND EXAMINED BY WAQAR TURPIN.
--- NOTE | 2019-11-13 18:54 | NUR ---
CLOSING NOTE Patient resting in the bed. No acute distress. Trach intact to vent. HOB elevated. GT intact, on Nepro at 40ml/hr, tolerated well. Skin warm and dry to touch. Perma cath intact to left subclavian, covered with clean and dry dressing. SL intact to RAC, no redness, no swelling. On contact isolation. All needs met. No seizure activity noted during shift. Contact isolation maintained. Safety measure maintained. Call light within reached. Bed locked in low position, padded side rails up, bed alarm on. Will endorse to night nurse.
--- NOTE | 2019-11-13 20:00 | NUR ---
received report @ start of shift,vent dependent, turned and repositioned, left chest wall perma-cath intact, used for dialysis on t-th-sat,big toes of both feet with gangrene and open wound, buttock/coccyx area with open wound, drsg kept clean and dry,g-tube feeding of nepro @ 40 ml/.hr infusing without difficulty, has cough which set alarm's off,sr up x's 3, bed in low position, call light within reach, patient upper extremities edematous off on vent, resp @ bedside suctioning as needed, will continue to monitor.
[2019-11-14] VITALS (8 sets, daily range): BP systolic 104–134
[2019-11-14] MEDS: IPRATROPIUM BROM 0.5 MG/2.5 ML VIAL.NEB (ATROVENT) INH SCH ×4 (01:45→20:26)
[2019-11-14] MEDS: ALBUTEROL SULFATE 0.083% 2.5 MG/3 ML VIAL.NEB INH SCH ×4 (01:45→20:26)
[2019-11-14] MEDS: MIDODRINE HCL 5 MG TABLET (PROAMATINE) GT SCH ×2 (05:59→14:06)
[2019-11-14] MEDS: VALPROIC ACID 250 MG CAPSULE (DEPAKENE) GT SCH ×2 (06:00→14:06)
--- NOTE | 2019-11-14 06:00 | NUR ---
continues to rest quietly in bed with eyes closed, turned and repositioned,vent functioning without difficulty, will continue to monitor.
--- NOTE | 2019-11-14 07:45 | NUR ---
OPENING NOTES PT AWAKE. NONLABORED BREATHING NOTED, PT ON VENT, TOLERATING WELL. USING FLACC SCALE, NO PAIN NOTED. PT CLEAN AND DRY. IV LINE INTACT AND PATENT, NO SIGNS OF INFILTRATION NOTED. BED LOCKED AND IN LOWEST POSITION. ALL NEEDS MET. CALL LIGHT IN REACH. FALL AND ASPIRATION PRECAUTIONS IN PLACE. CONTINUE TO MONITOR. Addendum: 11/14/19 at 1809 by Rubina James RN CHECKED G-TUBE PLACEMENT, CORRECT PLACEMENT. ZERO RESIDUAL NOTED. TOLERATING FEEDING WELL.
[2019-11-14] MEDS: LACOSAMIDE 100 MG TABLET GT SCH ×2 (09:49→20:46)
[2019-11-14] MEDS: LANSOPRAZOLE 30 MG CAPSULE.DR GT SCH (09:49)
[2019-11-14] MEDS: levETIRAcetam 500 MG TABLET GT SCH ×2 (09:50→20:46)
--- NOTE | 2019-11-14 09:50 | NUR ---
ROUTINE MEDS ROUTINE MEDS ADMINISTERED ORDERED PER MD, EDUCATION GIVEN, TOLERATED WELL. NO ACUTE DISTRESS NOTED. ALL NEEDS MET. CALL LIGHT IN REACH. CONTINUE TO MONITOR.
[2019-11-14] MEDS: BALSAM PERU/CASTOR OIL 60 GM OINT...G. TP SCH (09:51)
[2019-11-14] MEDS ORDERED: ROCPM1 IV (10:34)
--- NOTE | 2019-11-14 11:00 | NUR ---
ROUNDS SUCTIONED PT, TOLERATED WELL. PT AWAKE. NO ACUTE DISTRESS NOTED. ALL NEEDS MET. CALL LIGHT IN REACH. CONTINUE TO MONITOR.
--- NOTE | 2019-11-14 11:11 | NUR ---
GAVE REPORT TO CLAIRE FLORES FROM [facility] FOR TRANSFER. MOVING TO BED 209 A.
--- NOTE | 2019-11-14 11:31 | NUR ---
FAMILY AWARE OF TRANSFER SON OSCAR MADE AWARE THAT PATIENT WILL BE BACK TO [place] TODAY.
--- NOTE | 2019-11-14 11:42 | NUR ---
SON REFUSED FLU SHOT FOR THE PATIENT.
--- NOTE | 2019-11-14 11:45 | NUR ---
CALLED [facility] REGARDING REFUSAL OF FLU VACCINE. PT'S SON REFUSED FLU VACCINE FOR PT.
--- NOTE | 2019-11-14 13:00 | NUR ---
ROUNDS PT RESTING IN BED, CHEST RISE AND FALL NOTED. EASILY AWAKEN. SUCTIONED PT, TOLERATED WELL. NO ACUTE DISTRESS NOTED. ALL NEEDS MET. CALL LIGHT IN REACH. HOB ELEVATED. FALL AND ASPIRATION PRECAUTIONS IN PLACE. CONTINUE TO MONITOR.
--- NOTE | 2019-11-14 15:00 | NUR ---
ASSISTED PRINTING FILM STRIPPER WITH REPOSITIONING AND CLEANING PT. PERFORMED WOUND CARE ORDERED, TOLERATED WELL. NO ACUTE DISTRESS NOTED. ALL NEEDS MET. CALL LIGHT IN REACH. CONTINUE TO MONITOR.
[2019-11-14] MEDS: cefTRIAXone 1 GM in D5W 50 ML IV SCH (16:42)
--- NOTE | 2019-11-14 16:42 | NUR ---
ROUTINE MEDS ROUTINE MEDS ADMINISTERED ORDERED PER MD, EDUCATION GIVEN, TOLERATED WELL. NO ACUTE DISTRESS NOTED. ALL NEEDS MET. CALL LIGHT IN REACH. CONTINUE TO MONITOR.
--- NOTE | 2019-11-14 18:29 | NUR ---
CLOSING NOTES PT AWAKE, WATCHING TELEVISION. G-TUBE RUNNING ORDERED PER MD, TOLERATING WELL, HOB ELEVATED. IV LINE INTACT AND PATENT, NO SIGNS OF INFILTRATION NOTED. USING FLACC SCALE, NO SIGNS OR SYMPTOMS OF PAIN DISPLAYED. NO ACUTE DISTRESS NOTED. NONLABORED BREATHING NOTED, PT USING VENT. BED LOCKED AND IN LOWEST POSITION. ALL NEEDS MET. CALL LIGHT IN REACH. FALL AND ASPIRATION PRECAUTIONS IN PLACE. WILL ENDORSE TO NOC NURSE.
--- NOTE | 2019-11-14 20:20 | NUR ---
ASSUMED CARE. RECEIVED AWAKE,ALERT,NON-VERBAL. AFEBRILE, NOT IN ACUTE DISTRESS. NO PAIN OR DISCOMFORT NOTED. HBT2=048% ON MECHANICAL VENTILATOR WITH THE FOLLOWING SETTINGS: TV=810 FIO2=35% AC=12 PEEP=5. G-TUBE FEEDING NEPRO RUNNING AT 40 ML/HR. HEAD OF BED ELEVATED AT LEAST 30 DEGREES AT ALL TIMES. SINUS RHYTHM @ 64/MINUTE ON THE MONITOR. SALINE LOCK TO THE RIGHT AC AND PERMACATH TO THE LEFT CHEST INTACT. CONTACT ISOLATION FOR MDRO OF URINE BEING OBSERVED. RT AT BEDSIDE TO GIVE BREATHING TREATMENT. PT. FOR DISCHARGE BACK TO [facility]. REPORT GIVEN BY AM SHIFT NURSE TORY RANGEL TO [facility]. AMBULANCE ETA IS 2029. VS ARE OTHERWISE STABLE, WILL CONTINUE TO MONITOR. NEEDS ATTENDED.
--- NOTE | 2019-11-14 20:42 | NUR ---
AMBULANCE FOLLOW UP Called [facility] ambulance ([phone]) s/w Suhail; He said the crew is stuck in traffic on [address] new ETA is 25 min.
--- NOTE | 2019-11-14 20:46 | NUR ---
GASTRIC RESIDUAL=0. DUE MEDICATIONS GIVEN VIA G-TUBE.
--- NOTE | 2019-11-14 21:30 | NUR ---
AM [facility] HERE TO INFORMATION SERVICES CONSULTANT PT. REPORT GIVEN TO EMT KATERINA.
--- NOTE | 2019-11-14 21:40 | NUR ---
PT.LEFT UNIT VIA AMBULANCE [facility].
== END 2019-11-14 21:40 | DRG 130 ==
LOC: SED 14:12 → STU 17:43
PROVIDERS: ADMIT Internal Medicine; ATTEND Internal Medicine
PROC: 5A1955Z Respiratory Ventilation, Greater than 96 Consecutive Hours (ICD-10-PCS; principal; 2019-11-08)
PROC: 30233N1 Transfusion of Nonautologous Red Blood Cells into Peripheral Vein, Percutaneous Approach (ICD-10-PCS; 2019-11-08)
PROC: 5A1D70Z Performance of Urinary Filtration, Intermittent, Less than 6 Hours Per Day (ICD-10-PCS; 2019-11-09)
PROC: 5A1D70Z Performance of Urinary Filtration, Intermittent, Less than 6 Hours Per Day (ICD-10-PCS; 2019-11-11)
PROC: 5A1D70Z Performance of Urinary Filtration, Intermittent, Less than 6 Hours Per Day (ICD-10-PCS; 2019-11-13)
DX: J18.9 Pneumonia, unspecified organism (principal); E43 Unspecified severe protein-calorie malnutrition; G93.1 Anoxic brain damage, not elsewhere classified; J91.8 Pleural effusion in other conditions classified elsewhere; I12.0 Hypertensive chronic kidney disease with stage 5 chronic kidney disease or end stage renal disease; Z99.11 Dependence on respirator [ventilator] status; J96.10 Chronic respiratory failure, unspecified whether with hypoxia or hypercapnia; Z93.0 Tracheostomy status; N18.6 End stage renal disease; D63.1 Anemia in chronic kidney disease; Z16.24 Resistance to multiple antibiotics; I25.10 Atherosclerotic heart disease of native coronary artery without angina pectoris; N39.0 Urinary tract infection, site not specified; I73.9 Peripheral vascular disease, unspecified; B96.4 Proteus (mirabilis) (morganii) as the cause of diseases classified elsewhere; G40.909 Epilepsy, unspecified, not intractable, without status epilepticus; Z88.0 Allergy status to penicillin; Z88.8 Allergy status to other drugs, medicaments and biological substances; Z99.2 Dependence on renal dialysis; Z88.1 Allergy status to other antibiotic agents; Z87.891 Personal history of nicotine dependence; Z87.820 Personal history of traumatic brain injury; Z86.74 Personal history of sudden cardiac arrest; Z83.3 Family history of diabetes mellitus; Z78.9 Other specified health status; I25.2 Old myocardial infarction; Z68.36 Body mass index [BMI] 36.0-36.9, adult; Z79.899 Other long term (current) drug therapy; Y95 Nosocomial condition
CPT/HCPCS: 36415; 71045; 74018; 80048; 80053; 81000-TC; 82140-TC; 82607; 82728; 82746; 83010; 83540-TC; 83550-TC; 83605; 83615-TC; 83880; 84100-TC; 84132-TC; 84155; 84165; 84439; 84443-TC; 84484; 85007; 85025; 85027; 85044-TC; 85384-TC; 85610-TC; 85651-TC; 86140; 86886; 86900; 86901; 86920; 87040-TC; 87081; 87086; 87186-TC; 90935; 90937; 93005; 94002; 94003; 94640; 94760; 96361; 96374; 96375; 99285; C9113; G0378; J0696; J0885; J1580; J1644; J1940; J7030; J7040; J7060; J7613; P9021; P9046